=== PATIENT | male | born 1960 | race Caucasian/White ===

== ENCOUNTER 2017-01-13 15:05 | Emergency (ER) | payer OTHER ==
[2017-01-13 15:17] VITALS: BP 145/85; PULSE 77; TEMP 98.5; BMI 23.8
[2017-01-13] MEDS ORDERED: DIPHTH,PERTUSS(ACELL),TET 0.5 ML DISP.SYRIN IM ONE (16:13)
--- NOTE | 2017-01-13 16:18 | PDOC ---
History of Present Illness - General Chief Complaint: Bite Stated Complaint: DOG BITE Time Seen by Provider: 01/13/17 15:59 History Source: Patient Exam Limitations: No Limitations - History of Present Illness Initial Comments: 01/13/17 16:13 WAS PLAYING WITH HIS DOG, GRA grabbed a stick from the dog's mouth which cause dog to nip it him and impaled his left thumb. Was not a through and through bite , patient did not have profuse bleeding. Was seen at urgent care where wound was cleaned thoroughly and prescribed clindamycin and Augmentin. Was encouraged to come to emergency department for further evaluation Severity: reports: mild Pain Location: reports: upper extremity (left thumb) Associated Symptoms (Fall): denies symptoms Past History - Travel Traveled outside of the country in the last 30 days: No Close contact w/someone who was outside of country & ill: No - Past Medical History Allergies/Adverse Reactions: Allergies Allergy/AdvReac Type Severity Reaction Status Date / Time almond oil Allergy Verified 01/13/17 15:17 tree nut Allergy Verified 01/13/17 15:17 Home Medications: Ambulatory Orders Clindamycin [Cleocin -] 150 mg PO Q6H 01/13/17 Other medical history: denies - Surgical History Abdominal Surgery: Yes (HERNIA) Appendectomy: Yes - Psycho/Social/Smoking Cessation Hx Anxiety: No Suicidal Ideation: No Smoking History: Never smoked Have you smoked in the past 12 months: No Information on smoking cessation initiated: No Hx Alcohol Use: No Drug/Substance Use Hx: No Substance Use Type: None Hx Substance Use Treatment: No Review of Systems - Review of Systems Able to Perform ROS?: Yes Is the patient limited Yoruba proficient: Yes Constitutional: Yes: See HPI. No: Symptoms Reported, Chills, Fever HEENTM: No: Symptoms Reported Musculoskeletal: Yes: Symptoms Reported, See HPI. No: Joint Pain Integumentary: Yes: Symptoms Reported, See HPI, Lesions (puncture wound to the volar aspect of left thumb just distal to IP joint) All Other Systems: Reviewed and Negative *Physical Exam - Vital Signs Last Vital Signs Temp Pulse Resp BP Pulse Ox 98.5 F 77 18 145/85 99 01/13/17 15:15 01/13/17 15:15 01/13/17 15:15 01/13/17 15:15 01/13/17 15:15 - Physical Exam General Appearance: Yes: Nourished, Appropriately Dressed, Apparent Distress HEENT: positive: YOAN[place], TMs Normal, Pharynx Normal Neck: positive: Supple. negative: Tender Extremity: positive: Normal Capillary Refill, Normal Range of Motion (puncture wound to the pad of left thumb, has full range of motion to finger with strong flexion and extension against resistance. Sensation intact. No bruising, swelling.) Integumentary: positive: Normal Color, Dry, Other (puncture wound to left thumb) . negative: Swelling, Ecchymosis, Bruising Neurologic: positive: bisque ware dipper II-XII NML intact, Fully Oriented, Alert, Normal Mood/ Affect, Normal Response, Motor Strength 10/05 Progress Note - Progress Note Progress Note: Dogbite, no need for rabies vaccines has wound incurred by patient's family pet. Started on Augmentin and clindamycin, recommended to DC the clindamycin was not necessary for dual treatment. Tetanus/diphtheria/pertussis booster updated today *DC/Admit/Observation/Transfer Diagnosis at time of Disposition: Dog bite of finger Qualifiers: Encounter type: initial encounter Qualified Code(s): S61.259A - Open bite of unspecified finger without damage to nail, initial encounter - Discharge Dispostion Disposition: HOME Condition at time of disposition: Stable Admit: No - Referrals Referrals: Matthew Bonilla MD [Primary Care Provider] - - Patient Instructions Printed Discharge Instructions: DI for Animal Bites Additional Instructions: Rest, keep area elevated. Avoid strenuous activity or exercise until wound is healed Use hot soaks to area to bring more blood to the surface and encourage drainage May change dressings as needed to keep clean - Allow water from shower to wash area thoroughly for 2-3 minutes, and pat dry upon exit of shower and replace dressing. Change his dressing daily until the wound is completely healed. May use Tylenol or Motrin for mild pain relief Use stronger medications as directed and prescribed Continue all antibiotics /medications as prescribed Followup with private physician in 2-3 days for wound check Return to emergency Department for worsening swelling, pain, redness, fevers as needed tetanus/diphtheria/pertussis booster was updated today Have call Soumya at [phone] to discuss antibiotic use
== END 2017-01-13 16:33 | disposition home or self-care (01) ==
LOC: JERFT 15:05
PROC: 3E0234Z Introduction of Serum, Toxoid and Vaccine into Muscle, Percutaneous Approach (ICD-10-PCS; principal; 2017-01-13)
DX: S61.259A Open bite of unspecified finger without damage to nail, initial encounter (principal); W54.0XXA Bitten by dog, initial encounter; Y93.89 Activity, other specified; Y92.9 Unspecified place or not applicable
CPT/HCPCS: 90715; 99281-25